=== PATIENT | male | born 1995 | race Caucasian/White ===

== ENCOUNTER 2017-02-09 11:02 | Emergency (ER) | payer OTHER ==
[~2017-02-09] VITALS: Ht 170.2 cm; Wt 63.5 kg
[2017-02-09] MEDS ORDERED: MORPHINE 2 MG/ML 1ML SYRINGE IV ONE (11:30)
[2017-02-09] MEDS ORDERED: NS 1,000 ML IV ONE (11:30)
[2017-02-09] MEDS ORDERED: ONDANSETRON 4MG/2ML VIAL (J2405) IV ONE (11:30)
[2017-02-09] MEDS ORDERED: ZYRT10TA2 PO (11:35)
[2017-02-09 12:00] LABS: ALBUMIN 4.6 GM/DL (3.2-5.2); ALBUMIN/GLOBULIN RATIO 1.35 (1.00-1.93); ALKALINE PHOSPHATASE 82 U/L (45-117); ALT/SGPT 21 U/L (12-78); ANION GAP 7 MEQ/L (8-16); AST/SGOT 12 U/L (15-37); BILIRUBIN,DIRECT < 0.1 MG/DL (0.0-0.2); BILIRUBIN,TOTAL 0.5 MG/DL (0.2-1.0); BLOOD UREA NITROGEN 14 MG/DL (7-18); CALCIUM LEVEL 9.9 MG/DL (8.5-10.1); CARBON DIOXIDE LEVEL 29 MEQ/L (21-32); CHLORIDE LEVEL 103 MEQ/L (98-107); CREATININE FOR GFR 1.09 MG/DL (0.70-1.30); GLUCOSE, FASTING 94 MG/DL (70-105); POTASSIUM SERUM 3.8 MEQ/L (3.5-5.1); SODIUM LEVEL 139 MEQ/L (136-145)
[2017-02-09 12:07] LABS: BASO % 0.3 % (0.0-1.0); EOS # 0.1 K/mm3 (0.0-0.50); EOS % 1.5 % (0.0-3.0); LARGE UNSTAINED CELL # 0.1 K/mm3 (0.0-0.4); LARGE UNSTAINED CELL % 2.7 % (0.0-4.0); LYMPH # 1.2 K/mm3 (1.5-6.5); LYMPH % 20.6 % (24.0-44.0); MEAN CORPUSCULAR VOLUME 88.5 fl (80.0-96.0); MONO # 0.3 K/mm3 (0.0-0.8); MONO % 6.4 % (0.0-5.0); NEUTROPHILS # 3.6 K/mm3 (1.8-7.7); NEUTROPHILS % 68.5 % (36.0-66.0); PLATELET COUNT, AUTOMATED 292 k/mm3 (150-450); WHITE BLOOD COUNT 5.2 K/mm3 (4.0-10.0)
--- NOTE | 2017-02-09 12:09 | REP ---
CT ABDOMEN PELVIS WITHOUT IV OR ORAL CONTRAST: Renal stone protocol. HISTORY: Right lower quadrant pain right upper quadrant pain. CT FINDINGS: Digital sexer radiograph demonstrates an unremarkable bowel gas pattern. The lung bases are clear. The liver and the spleen are normal in size, homogeneous in texture. A tiny accessory splenule. No adrenal lesion is seen on either side. The gallbladder and pancreas are unremarkable. No hydronephrosis, intrarenal calculus, mass or cyst is seen. Normal caliber aorta is seen. No retroperitoneal mass or adenopathy is observed. Urinary bladder is unremarkable. No abdominal wall defect is seen. There are multiple small right lower quadrant mesenteric lymph nodes seen. A normal appendix is observed. There is no evidence of free air. No abdominal wall defect is seen. No bony destructive lesion. IMPRESSION: No urinary tract calculus or hydronephrosis seen. Normal appendix noted. No acute abnormality seen. Signed by Hugo Darby MD 02/09/2017 01:00 P
[2017-02-09 13:14] LABS: YEAST LIKE CELL URINE AUTO LARGE
[2017-02-09] MEDS ORDERED: ZOFR4TAB3 PO (13:24)
[2017-02-09 13:41] VITALS: BP 120/72
== END 2017-02-09 13:42 | disposition home or self-care (01) ==
LOC: M ED 11:53
DX: R10.9 Unspecified abdominal pain (principal); R11.10 Vomiting, unspecified; Z79.899 Other long term (current) drug therapy
CPT/HCPCS: 36415; 74176; 80048; 80076; 81001; 83690; 85025; 87086; 96361; 96374; 96375; 99284; J2405